=== PATIENT | female | born 1935 | race Caucasian/White ===

== ENCOUNTER → 2017-12-06 | Outpatient (CLI) | payer OTHER | LOC: BRMIMAGING 08:20 | PROVIDERS: ATTEND Internal Medicine Hematology & Oncology | DX: R14.0 Abdominal distension (gaseous) (principal) | CPT/HCPCS: 76705-PO ==

== ENCOUNTER 2017-12-10 16:07 | Emergency (ER) | payer OTHER ==
[2017-12-10 16:27] VITALS: RESP 16; TEMP 97.7
--- NOTE | 2017-12-10 16:45 | EDPHY ---
H & P Stated Complaint: R hip pain Time Seen by Provider: 12/10/17 16:35 HPI/ROS: CHIEF COMPLAINT: Right gluteal pain HISTORY OF PRESENT ILLNESS: The patient is a 82 year old female who comes to the emergency department complaining of right gluteal pain. She states that she was bending over picking something up off the kitchen floor when she fell backwards in a squatting position and landed on her buttocks. She has pain in her right gluteus. She denies tailbone pain. She was ambulatory and walked over to the couch. She states that after sitting for few minutes became more painful. She denies injuries to her extremities. She denies head neck or back pain. No chest pain or abdominal pain. REVIEW OF SYSTEMS: Constitutional: denies: chills, fever, recent illness, recent injury EENTM: denies: blurred vision, double vision, nose congestion Respiratory: denies: cough, shortness of breath Cardiac: denies: chest pain, irregular heart rate, lightheadedness, palpitations Gastrointestinal/Abdominal: denies: abdominal pain, diarrhea, nausea, vomiting, blood streaked stools Genitourinary: denies: dysuria, frequency, hematuria, pain Musculoskeletal: See HPI Skin: denies: lesions, rash, jaundice, bruising Neurological: denies: headache, numbness, paresthesia, tingling, dizziness, weakness Hematologic/Lymphatic: denies: blood clots, easy bleeding, easy bruising Immunologic/allergic: denies: HIV/AIDS, transplant EXAM: GENERAL: Well-appearing, well-nourished and in no acute distress. HEAD: Atraumatic, normocephalic. EYES: Pupils equal round and reactive to light, extraocular movements intact, sclera anicteric, conjunctiva are normal. ENT: TMs normal, nares patent, oropharynx clear without exudates. Moist mucous membranes. NECK: Normal range of motion, supple without lymphadenopathy or JVD. LUNGS: Breath sounds clear to auscultation bilaterally and equal. No wheezes rales or rhonchi. HEART: Regular rate and rhythm without murmurs, rubs or gallops. ABDOMEN: Soft, nontender, normoactive bowel sounds. No guarding, no rebound. No masses appreciated. BACK: No CVA tenderness, no spinal tenderness, step-offs or deformities EXTREMITIES: Right gluteal pain with palpation, no pain with axial loading of he femur. Some pain with internal rotation. NEUROLOGICAL: Cranial nerves II through XII grossly intact. Normal speech, normal gait. 5/5 strength, normal movement in all extremities, normal sensation PSYCH: Normal mood, normal affect. SKIN: Warm, dry, normal turgor, no visible rashes or lesions. 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 karolina montgomery. breast cyst removed - Family History Significant Family History: No pertinent family hx - Social History Smoking Status: Former smoker Alcohol Use: Sober Drug Use: None Constitutional: Initial Vital Signs Temperature (C) 36.5 C 12/10/17 16:24 Heart Rate 87 12/10/17 16:24 Respiratory Rate 16 12/10/17 16:24 Blood Pressure 153/96 H 12/10/17 16:24 O2 Sat (%) 97 12/10/17 16:24 O2 Delivery Mode Room Air Allergies/Adverse Reactions: Sulfa (Sulfonamide Antibiotics) Allergy (Intermediate, Verified 12/10/17 16:22) Vomiting Home Medications: Medication Instructions Recorded Aspirin [Baby Aspirin] 81 mg PO 02/14/13 Atorvastatin Calcium [Lipitor 20 20 mg PO DAILY 02/14/13 mg (RX)] Metoprolol Succinate 25 mg PO 02/14/13 metFORMIN HCL [Glucophage 500 mg 500 mg PO BIDMEAL 02/14/13 (RX)] Myrbetriq 12/10/17 Medical Decision Making - Diagnostics Imaging Results: Imaging Impressions Hip X-Ray 12/10/17 16:33 Impression: Nothing acute identified. Abdomen/Pelvis CT 12/10/17 16:54 Impression: 1. No acute femoral neck or pelvic fracture. No gluteal hematoma. 2. No free fluid or evidence of solid organ or bowel injury (noncontrast imaging limits sensitivity). 3. Cholelithiasis is unchanged. Findings discussed with Emergency Department physician, Hamzah De La Rosa on 2017, 17:29. Attention: This CT examination is specifically designed to evaluate patients who are clinically suspected of having acute obstructive uropathy. This examination does not use radiographic contrast, and as such, provides only a limited evaluation of the abdomen, pelvis and retroperitoneum. If there is further clinical suspicion for pathological conditions other than obstructive uropathy, a complete CT evaluation of the abdomen and pelvis utilizing intravenous, oral, and rectal contrast should be considered. Imaging: Discussed imaging studies w/ call center agent Radiologist ED Course/Re-evaluation: Patient's plain films are unremarkable. I will order CT scan because of her difficulty with walking. The patient's CT images are also negative. The patient is able to ambulate here in the ER. I suspect she has a contusion and maybe muscle strain. We discussed pain management. She and would prefer to stick with Aleve which she takes at home and also may be Tylenol. We discussed indications for returning. Differential Diagnosis: Partial list of the Differential diagnosis considered include but were not limited to; contusion, strain, fracture and although unlikely based on the history and physical exam, I also considered dislocation, vascular injury. I discussed these differential diagnoses and the plan with the patient as well as the usual and expected course. The patient understands that the diagnosis is provisional and that in medicine we are not always correct and that further workup is often warranted. Usual and customary warnings were given. All of the patient's questions were answered. The patient was instructed to return to the emergency department should the symptoms at all worsen or return, otherwise to followup with the physician as we discussed. Departure - Departure Disposition: Home, Routine, Self-Care Clinical Impression: Acute right hip pain Condition: Fair Instructions: Hip Pain (ED) Referrals: Deysi Workman MD [Primary Care Provider] - As per Instructions Galo Myers MD [Medical Doctor] - 3-4 days, if not improved
[2017-12-10 18:21] VITALS: BP 208/104; PULSE 90; O2SAT 96
== END 2017-12-10 18:21 | disposition home or self-care (01) ==
DX: S79.911A Unspecified injury of right hip, initial encounter (principal); E11.9 Type 2 diabetes mellitus without complications; Z87.891 Personal history of nicotine dependence; Z79.82 Long term (current) use of aspirin; Z79.84 Long term (current) use of oral hypoglycemic drugs; W18.39XA Other fall on same level, initial encounter; Y92.010 Kitchen of single-family (private) house as the place of occurrence of the external cause